=== PATIENT | male | born 1990 | race Caucasian/White ===

== ENCOUNTER 2020-09-10 13:01 | Observation (INO) ==
[2020-09-10] MEDS ORDERED: *HR* Methadone 10 MG TABLET PO ONE (14:01)
[2020-09-10] MEDS ORDERED: Isovue-370 500 ML BOTTLE IVP ONE (14:02)
[2020-09-10 14:37] LABS: Bilirubin,Urine Negative (Negative); Blood,Urine Negative (Negative); Clarity,Urine Clear (Clear); Color,Urine Yellow (Yellow); Glucose,Urine (UA) Normal (Normal); Ketones,Urine Trace mg/dL (Negative); Leukocyte Esterase,Urine Negative (Negative); Nitrite,Urine Negative (Negative); Protein,Urine Trace mg/dL (Neg-Trace); Specific Gravity,Urine 1.022 (1.010-1.025)
[2020-09-10 14:49] LABS: Basophils # 0.1 K/mcL (0.0-0.2); Basophils % 0.8 %; Eosinophils # 0.1 K/mcL (0.0-0.6); Eosinophils % 0.9 %; Hematocrit 43.1 % (37.5-50.1); Hemoglobin 14.1 g/dL (12.9-16.9); Immature Granulocytes % 0.2 % (0-4); Lymphocytes # 4.4 K/mcL (0.6-4.6); Mean Corpuscular HGB Conc 32.7 g/dL (31.6-35.5); Mean Corpuscular Hemoglobin 25.7 pg (28.0-33.3); Mean Corpuscular Volume 78.5 fL (83.0-100.0); Mean Platelet Volume 9.7 fL (9.4-12.4); Monocytes # 0.9 K/mcL (0.0-1.3); Monocytes % 8.5 %; Platelet Count 463 K/mcL (140-400); Red Blood Count 5.49 M/mcL (4.19-5.50); Red Cell Distribution Width 14.7 % (11.5-14.5); Segmented Neutrophils % 47.6 %; White Blood Count 10.5 K/mcL (4.3-11.1)
[2020-09-10 14:56] LABS: INR 1.2; Prothrombin Time 14.3 Seconds (9.4-12.1)
[2020-09-10 15:08] LABS: Alanine Aminotransferase 18 Units/L (7-52); Albumin 4.7 g/dL (3.5-5.7); Albumin/Globulin Ratio 1.2 (1.1-2.2); Alkaline Phosphatase 78 Units/L (34-104); Aspartate Amino Transferase 19 Units/L (13-39); BUN/Creatinine Ratio 16 (6-26); Bilirubin,Total 1.7 mg/dL (0.3-1.0); Blood Urea Nitrogen 14 mg/dL (6-20); Calcium 9.6 mg/dL (8.6-10.3); Carbon Dioxide 21 mEq/L (23-29); Chloride 101 mEq/L (98-107); Creatine Kinase 148 Units/L (30-223); Globulin 3.8 g/dL (2.4-3.5); Glucose 86 mg/dL (70-105); Osmolality,Calculated 280 (280-300); Potassium 3.1 mEq/L (3.5-5.1); Sodium 135 mEq/L (136-145); Total Protein 8.5 g/dL (6.4-8.9); eGFR For African Americans > 60 (> 60); eGFR For Non-African Americans > 60 (> 60)
[2020-09-10 15:09] LABS: C-Reactive Protein < 5 mg/L (Less than 10); Ethanol < 10 mg/dL (Less than 10); Lipase 14 Units/L (11-82)
[2020-09-10 15:58] LABS: Amphetamine Screen,Urine Negative ng/mL (Cutoff=1000); Barbiturate Screen,Urine Negative ng/mL (Cutoff=200); Benzodiazepines Screen,Urine Negative ng/mL (Cutoff=200); Cannabinoid Screen,Urine Negative ng/mL (Cutoff = 50); Cocaine Screen,Urine Negative ng/mL (Cutoff= 300); Opiate Screen,Urine Negative ng/mL (Cutoff=300); Phencyclidine Screen,Urine Negative ng/mL (Cutoff=25)
[2020-09-10] MEDS ORDERED: Potassium Chloride Elixir 20 MEQ/15 ML UDC PO ONE (19:23)
[2020-09-10] MEDS ORDERED: 0.9 % Sodium Chloride 1,000 ML IV ONE (19:25)
[2020-09-10] MEDS ORDERED: Melatonin 3 MG TABLET PO PRN (20:12)
[2020-09-10] MEDS ORDERED: Naloxone 0.4 MG/ML INJ IVP PRN (20:12)
[2020-09-10] MEDS ORDERED: Ondansetron 4 MG/2 ML VIAL IVP PRN (20:12)
[2020-09-10] MEDS ORDERED: Acetaminophen 325 MG TABLET PO PRN (20:12)
[2020-09-10] MEDS ORDERED: *HR* Promethazine 25 MG/ML VIAL IM PRN (20:12)
[2020-09-10] MEDS: traZODone 50 MG TABLET PO SCH (21:36)
[2020-09-11 05:57] LABS: Basophils # 0.1 K/mcL (0.0-0.2); Basophils % 1.2 %; Eosinophils # 0.2 K/mcL (0.0-0.6); Eosinophils % 2.9 %; Hematocrit 42.8 % (37.5-50.1); Immature Granulocytes % 0.3 % (0-4); Lymphocytes # 3.6 K/mcL (0.6-4.6); Lymphocytes % 53.2 %; Mean Corpuscular HGB Conc 32.7 g/dL (31.6-35.5); Mean Corpuscular Hemoglobin 25.7 pg (28.0-33.3); Mean Corpuscular Volume 78.7 fL (83.0-100.0); Mean Platelet Volume 9.9 fL (9.4-12.4); Monocytes # 0.5 K/mcL (0.0-1.3); Monocytes % 7.5 %; Neutrophils # 2.4 K/mcL (1.6-8.9); Platelet Count 366 K/mcL (140-400); Red Blood Count 5.44 M/mcL (4.19-5.50); Red Cell Distribution Width 15.4 % (11.5-14.5); Segmented Neutrophils % 34.9 %; White Blood Count 6.8 K/mcL (4.3-11.1)
[2020-09-11] MEDS: *HR* Enoxaparin 40 MG/0.4 ML SYRINGE SQ SCH (07:25)
[2020-09-11] MEDS: *HR* Methadone 10 MG TABLET PO SCH ×2 (14:10→18:09)
[2020-09-11] MEDS: Ketorolac 15 MG/ML VIAL IVP PRN (16:26)
[2020-09-11] MEDS: Gabapentin 300 MG CAPSULE PO SCH (21:57)
[2020-09-11] MEDS: traZODone 50 MG TABLET PO SCH (21:57)
[2020-09-12] MEDS: *HR* Enoxaparin 40 MG/0.4 ML SYRINGE SQ SCH (06:11)
[2020-09-12] MEDS: *HR* Methadone 10 MG TABLET PO SCH ×2 (06:12→20:13)
[2020-09-12] MEDS: rOPINIRole 0.25 MG TABLET PO SCH (07:34)
[2020-09-12] MEDS: Gabapentin 300 MG CAPSULE PO SCH ×3 (07:34→20:14)
[2020-09-12] MEDS: Ketorolac 15 MG/ML VIAL IVP PRN (12:24)
[2020-09-12] MEDS: traZODone 50 MG TABLET PO SCH (20:14)
[2020-09-13] MEDS: *HR* Enoxaparin 40 MG/0.4 ML SYRINGE SQ SCH (05:53)
[2020-09-13 06:36] LABS: BUN/Creatinine Ratio 25 (6-26); Blood Urea Nitrogen 26 mg/dL (6-20); Calcium 9.1 mg/dL (8.6-10.3); Carbon Dioxide 20 mEq/L (23-29); Chloride 112 mEq/L (98-107); Glucose 108 mg/dL (70-105); Magnesium 2.2 mg/dL (1.6-2.6); Osmolality,Calculated 295 (280-300); Potassium 4.8 mEq/L (3.5-5.1); Sodium 140 mEq/L (136-145); eGFR For African Americans > 60 (> 60); eGFR For Non-African Americans > 60 (> 60)
[2020-09-13] MEDS: Gabapentin 300 MG CAPSULE PO SCH ×3 (08:48→19:44)
[2020-09-13] MEDS: *HR* Methadone 10 MG TABLET PO SCH (08:49)
[2020-09-13] MEDS: rOPINIRole 0.25 MG TABLET PO SCH (08:49)
[2020-09-13] MEDS: traZODone 50 MG TABLET PO SCH (19:47)
[2020-09-13] MEDS ORDERED: *HR* Methadone 10 MG TABLET PO ONE (21:00)
[2020-09-14] MEDS: *HR* Enoxaparin 40 MG/0.4 ML SYRINGE SQ SCH (05:27)
[2020-09-14 06:43] VITALS: BP 143/97
[2020-09-14] MEDS ORDERED: Methadone Oral Concentrate 50 MG/5 ML UDC PO SCH (09:00)
== END 2020-09-14 07:05 | disposition home health service (06) ==
LOC: 3BNU 13:01 → EMEROOARM 13:01 → SUATTDRO 19:35 → 3BNU 20:17
PROVIDERS: ADMIT Family Medicine; ATTEND Internal Medicine